=== PATIENT | male | born 1970 | race Caucasian/White ===

== ENCOUNTER 2018-07-18 15:57 | Inpatient (IN) | payer OTHER ==
[2018-07-18 17:49] VITALS: BMI 27.7
--- NOTE | 2018-07-18 18:17 | HP ---
CIWA Score Nausea/Vomitin-Mild Nausea/No Vomiting Muscle Tremors: 2 Anxiety: 4-Mod. Anxious/Guarded Agitation: 4-Moderately Restless Paroxysmal Sweats: No Perspiration Orientation: 1-Uncertain about Date Tacttile Disturbances: 2-Mild Itch/Numbness/Burn Auditory Disturbances: 0-None Visual Disturbances: 0-None Headache: 2-Mild CIWA-Ar Total Score: 16 - Admission Criteria OASAS Guidelines: Admission for Medically Managed Detox: Requires at least one of the followin. CIWA greater than 12 2. Seizures within the past 24 hours 3. Delirium tremens within the past 24 hours 4. Hallucinations within the past 24 hours 5. Acute intervention needed for co occurring medical disorder 6. Acute intervention needed for co occurring psychiatric disorder 7. Severe withdrawal that cannot be handled at a lower level of care (continued vomiting, continued diarrhea, abnormal vital signs) requiring intravenous medication and/or fluids 8. Patient presents the following: CIWA greater than 12 Admission Criteria Met: Admission criteria met Admission ROS [facility] Allergies/Adverse Reactions: Allergies Allergy/AdvReac Type Severity Reaction Status Date / Time No Known Allergies Allergy Verified 12/29/17 17:00 History of Present Illness: patient here for detox from etoh use , reports 06/29 liquor , first age of use 14 , progressively increased since his 20's , prior detox at this facility several years ago ,latest use yesterday, current symptoms as above. Reports relapsed several days ago , prior no etoh use since 1 yr ago , relapsed Jun 2017, then August 2017 , then September 2017 - Jun 2018 sober .Denies seizures, + blackouts + tremors if not drinking , + falls while intoxicated , most recently 2 mo ago states he went to [facility] . States went to [facility] 3 d. ago for chest pain , medically cleared, per pt Ef 20 % . tobacco : occasional cocaine : 400-500 $/day , denies ivdu denies other illicits PMHX :heart dz, heart failure , asthma, DM , bipolar d/o , depression , anxiety , neuropathy x 1 yr using cane PSHx : lipoma from abdomen and legs 2011 , cardiac stenting 2012, 2014,2016 SHx: homeless , unemployed , finances habit through [facility] and SSD since 2017 for MH issues Patient reports planning to return to [place] upon completion of detox . 07/25/18 . Has daughter in [place] age 5 . MEDS COULD NOT BE VERIFIED PHARMACY WAS CLOSED : [phone] , insulin coverage provided for overnight . discussed with patient . Exam Limitations: Clinical Condition - Ebola screening Have you traveled outside of the country in the last 21 days: No Have you had contact with anyone from an Ebola affected area: No Have you been sick,other than usual withdrawal symptoms: No Do you have a fever: No - Review of Systems Constitutional: See HPI EENT: reports: Other (glasses - bifocals , denies dysphagia) Respiratory: reports: No Symptoms reported, Shortness of Breath (has albuterol inhaler) Cardiac: reports: Other (known cardiac issues, has NTG , intermittent CP) GI: reports: No Symptoms Reported : reports: No Symptoms Reported Musculoskeletal: reports: See HPI Integumentary: reports: No Symptoms Reported Neuro: reports: No Symptoms reported Endocrine: reports: No Symptoms Reported Psychiatric: reports: Orientated x3, Anxious, Depressed Patient History - Patient Medical History Hx Anemia: No Hx Asthma: Yes (albuterol inhaler) Hx Chronic Obstructive Pulmonary Disease (COPD): No Hx Cancer: No Hx Cardiac Disorders: No (old mi s/p angioplasty with stent) Hx Congestive Heart Failure: Yes Hx Hypertension: Yes Hx Hypercholesterolemia: Yes Hx Pacemaker: No HX Cerebrovascular Accident: No Hx Seizures: No Hx Dementia: No Hx Diabetes: Yes (on metformin and insuin) Hx Gastrointestinal Disorders: No Hx Liver Disease: No Hx Genitourinary Disorders: No Hx Sexually Transmitted Disorders: No Hx Renal Disease (ESRD): No Hx Thyroid Disease: No Hx Human Immunodeficiency Virus (HIV): No (negative last 07/12) Hx Hepatitis C: No Hx Depression: Yes (anxiety,insomnia) Hx Suicide Attempt: Yes (overdose at age of 21 years) Hx Bipolar Disorder: No Hx Schizophrenia: No - Patient Surgical History Past Surgical History: Yes Hx Neurologic Surgery: No Hx Cataract Extraction: No Hx Cardiac Surgery: Yes (angioplasty with 3 stents in 2012) Hx Lung Surgery: No Hx Breast Surgery: No Hx Breast Biopsy: No Hx Abdominal Surgery: No Hx Appendectomy: No Hx Cholecystectomy: No Hx Genitourinary Surgery: No Hx Section: No Hx Orthopedic Surgery: No Anesthesia Reaction: No - PPD History Date: 12/31/17 - Smoking Cessation Smoking history: Current every day smoker Have you smoked in the past 12 months: Yes Aproximately how many cigarettes per day: 3 Hx Chewing Tobacco Use: No Initiated information on smoking cessation: No Family Disease History - Family Disease History Family Disease History: Other: Grandparent (grandmother alcohol), Mother ( alcohol,) Admission Physical Exam BHS - Vital Signs Vital Signs: Vital Signs - 24 hr 07/18/18 17:47 Temperature 98.1 F Pulse Rate 81 Respiratory 18 Rate Blood Pressure 116/82 - Physical General Appearance: Yes: Disheveled, Moderate Distress, Anxious HEENTM: Yes: Hearing grossly Normal, Normocephalic, Normal Voice Respiratory: Yes: Chest Non-Tender, Lungs Clear, Normal Breath Sounds Neck: Yes: No masses,lesions,Nodules, Trachea in good position Breast: Yes: Breast Exam Deferred Cardiology: Yes: Regular Rhythm, Regular Rate, S1, S2 Abdominal: Yes: Normal Bowel Sounds, Soft Genitourinary: Yes: Within Normal Limits Back: Yes: Normal Inspection Musculoskeletal: Yes: Other (ambulating w/ cane) Extremities: Yes: Normal Range of Motion, Non-Tender, Tremors Neurological: Yes: Normal Mood/Affect Integumentary: Yes: Normal Color, Warm - Diagnostic (1) Alcohol dependence with uncomplicated withdrawal Current Visit: No Status: Acute (2) Cocaine dependence Current Visit: No Status: Chronic Qualifiers: Substance use status: uncomplicated Qualified Code(s): F14.20 - Cocaine dependence, uncomplicated (3) Nicotine dependence Current Visit: No Status: Chronic Qualifiers: Nicotine product type: cigarettes Substance use status: in withdrawal Qualified Code(s): F17.213 - Nicotine dependence, cigarettes, with withdrawal (4) Old [place] (myocardial infarction) Current Visit: No Status: Chronic (5) Status post angioplasty with stent Current Visit: No Status: Acute (6) Asthma Current Visit: No Status: Chronic Qualifiers: Asthma severity: mild Asthma persistence: intermittent Asthma complication type: with status asthmaticus Qualified Code(s): J45.22 - Mild intermittent asthma with status asthmaticus (7) DM2 (diabetes mellitus, type 2) Current Visit: No Status: Chronic Qualifiers: Diabetes mellitus group home insulin use: with group home use Diabetes mellitus complication status: with diabetic arthropathy (8) Use of cane as ambulatory aid Current Visit: No Status: Chronic BHS Breath Alcohol Content Breath Alcohol Content: 0 Urine Drug Screen - Results Drug Screen Negative: No Urine Drug Screen Results: CALLI-Cocaine
[2018-07-18] MEDS ORDERED: IBUPROFEN 400 MG TABLET (FP) PO PRN (18:32)
[2018-07-18] MEDS ORDERED: MAGNESIUM CITRATE 300 ML BOTTLE PO PRN (18:32)
[2018-07-18] MEDS ORDERED: MAGNESIUM HYDROX 2400MG/30ML ORAL SUSPENSION 30 ML CUP PO PRN (18:32)
[2018-07-18] MEDS ORDERED: MENTHOL/PHENOL 1 EACH UD MM PRN (18:32)
[2018-07-18] MEDS ORDERED: P-EPHED 60MG/TRIPROLIDI 2.5MG TABLET PO PRN (18:32)
[2018-07-18] MEDS ORDERED: guaiFENesin/D-METHORPHAN HB 10 ML UNIT-DOSE CUPS PO PRN (18:32)
[2018-07-18] MEDS ORDERED: chlordiazePOXIDE HCL 25 MG CAPSULE PO PRN (18:32)
[2018-07-18] MEDS ORDERED: MAG HYDROX/AL HYDROX/SIMETH 30 ML UNIT-DOSE CUP PO PRN (18:32)
[2018-07-18] MEDS ORDERED: ALBUTEROL SO4 0.083% IH SOL 2.5 MG/3 ML VIAL.NEB. NEB PRN (19:25)
[2018-07-18] MEDS: CLOPIDOGREL BISULFATE 75 MG TABLET (FP) PO SCH (21:26)
[2018-07-18] MEDS: ATORVASTATIN CA 40 MG TABLET (FP) PO SCH (21:26)
[2018-07-18] MEDS: ASPIRIN 81 MG CHEWABLE TABLETS PO SCH (21:26)
[2018-07-18] MEDS: ALBUTEROL SO4 8 GM HFA INHALER IH SCH (21:36)
[2018-07-18] MEDS: THIAMINE HCL 100 MG TABLET (FP) PO SCH (22:18)
[2018-07-18] MEDS: ACETAMINOPHEN 325 MG TABLET (FP) PO PRN (22:19)
[2018-07-18] MEDS: MELATONIN 5 MG TABLETS PO PRN (22:19)
[2018-07-18] MEDS: INSULIN SLIDING SCALE (NOVOLOG) 1 VIAL SQ SCH (22:20)
[2018-07-18] MEDS: BUDESONIDE/FORMETEROL FUMARATE 80/4.5 mcg INHALER IH SCH (22:22)
[2018-07-18] MEDS: chlordiazePOXIDE HCL 25 MG CAPSULE PO SCH (22:35)
[2018-07-19] MEDS: ALBUTEROL SO4 8 GM HFA INHALER IH SCH ×4 (01:35→19:35)
[2018-07-19] MEDS: chlordiazePOXIDE HCL 25 MG CAPSULE PO SCH ×4 (05:19→22:38)
[2018-07-19] MEDS ORDERED: INSULIN SLIDING SCALE (NOVOLOG) 1 VIAL SQ ONE (08:03)
[2018-07-19] MEDS: metFORMIN HCL 500 MG TABLET (FP) PO SCH (08:06)
[2018-07-19] MEDS: INSULIN SLIDING SCALE (NOVOLOG) 1 VIAL SQ SCH ×4 (08:08→22:25)
[2018-07-19] MEDS: ASPIRIN 81 MG CHEWABLE TABLETS PO SCH (10:24)
[2018-07-19] MEDS: PRENATAL VITAMINS W/ FOLIC ACID TABLET (FP) PO SCH (10:24)
[2018-07-19] MEDS: CLOPIDOGREL BISULFATE 75 MG TABLET (FP) PO SCH (10:24)
[2018-07-19] MEDS: BUDESONIDE/FORMETEROL FUMARATE 80/4.5 mcg INHALER IH SCH ×2 (10:25→22:25)
[2018-07-19] MEDS: ACETAMINOPHEN 325 MG TABLET (FP) PO PRN ×2 (10:26→20:06)
[2018-07-19 10:44] LABS: ALBUMIN 3.3 g/dl (3.4-5.0); ALK PHOS 115 U/L (45-117); ANION GAP 11 MMOL/L (8-16); BILIRUBIN,TOTAL 0.5 mg/dL (0.2-1); BLOOD UREA NITROGEN 15 mg/dL (7-18); CALCIUM 8.3 mg/dL (8.5-10.1); CHLORIDE 101 mmol/L (98-107); CO2 24 mmol/L (21-32); CREATININE 1.1 mg/dL (0.55-1.3); POTASSIUM 3.8 mmol/L (3.5-5.1); SGOT/AST 18 U/L (15-37); SGPT/ALT 41 U/L (13-61); SODIUM 136 mmol/L (136-145); TOT PROT 6.3 g/dl (6.4-8.2)
[2018-07-19 10:45] LABS: HEMATOCRIT 38.7 % (35.4-49); HEMOGLOBIN 13.2 GM/dL (11.7-16.9); MCH 31.6 pg (25.7-33.7); MEAN PLT VOLUME 11.5 fl (7.5-11.1); PLATELET COUNT 120 K/MM3 (134-434); RBC 4.17 M/mm3 (4.00-5.60); RDW 13.6 % (11.9-15.9)
[2018-07-19 12:31] LABS: GLUCOSE,RANDOM 436 mg/dL (74-106)
[2018-07-19] MEDS: GABAPENTIN 400 MG CAPSULE (FP) PO SCH ×2 (13:47→22:21)
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
[2018-07-19] MEDS ORDERED: NITROGLYCERIN SUBLINGUAL 1/200 0.3 MG BTL SL PRN (15:17)
[2018-07-19] MEDS ORDERED: NITROGLYCERIN SUBLINGUAL 1/150 0.4 MG TAB SL PRN (15:37)
[2018-07-19] MEDS: ARIPiprazole 5 MG TABLET (FP) PO SCH (15:39)
[2018-07-19] MEDS: SERTRALINE HCL 50 MG TABLET (FP) PO SCH (15:39)
--- NOTE | 2018-07-19 15:47 | PN ---
S CIWA - CIWA Score Nausea/Vomitin Muscle Tremors: 3 Anxiety: 1-Mildly Anxious Agitation: 0-Normal Activity Paroxysmal Sweats: 3 Orientation: 2-Disoriented Date<2 days Tacttile Disturbances: 1-Very Mild Itch/Numbness Auditory Disturbances: 0-None Visual Disturbances: 1-Very Mild Sensitivity Headache: 3-Moderate CIWA-Ar Total Score: 17 BHS Progress Note (SOAP) Subjective: Tremors, Nausea, Sweating, Interrupted Sleep, H/A, Body Aches. Objective: PATIENT A & O X 2 (UNCERTAIN ABOUT CURRENT DAY / DATE). PATIENT OBSERVED AMBULATING ON UNIT WITH ASSISTANCE OF A CANE. IN NO ACUTE DISTRESS. 07/19/18 15:40 Vital Signs Temperature 97.5 F L 07/19/18 13:49 Pulse Rate 87 07/19/18 13:49 Respiratory Rate 17 07/19/18 13:49 Blood Pressure 128/81 07/19/18 13:49 O2 Sat by Pulse Oximetry (%) Laboratory Tests 07/18/18 07/18/18 07/19/18 20:37 21:24 05:18 WBC RBC Hgb Hct MCV MCH MCHC RDW Plt Count MPV Sodium Potassium Chloride Carbon Dioxide Anion Gap BUN Creatinine Creat Clearance w eGFR POC Glucometer 247 277 339 Random Glucose Calcium Total Bilirubin AST ALT Alkaline Phosphatase Total Protein Albumin 07/19/18 07/19/18 07/19/18 07:00 07:00 11:39 WBC 6.0 RBC 4.17 Hgb 13.2 Hct 38.7 MCV 93.0 MCH 31.6 MCHC 34.0 RDW 13.6 Plt Count 120 L MPV 11.5 H D Sodium 136 Potassium 3.8 Chloride 101 Carbon Dioxide 24 Anion Gap 11 BUN 15 Creatinine 1.1 Creat Clearance w eGFR > 60 POC Glucometer 388 Random Glucose 436 H* Calcium 8.3 L Total Bilirubin 0.5 AST 18 ALT 41 Alkaline Phosphatase 115 Total Protein 6.3 L Albumin 3.3 L LABS NOTED. RPR RESULT PENDING. 07/19/18 15:41 Assessment: 07/19/18 15:41 WITHDRAWAL SYMPTOMS. Plan: CONTINUE DETOX. INCREASE DAILY PO FLUID INTAKE. PATIENT REPORTS HISTORY OF TAKING NITROGLYCERIN PRN CHEST PAIN FOR CARDIAC DISEASE. HOWEVER, PATIENT UNCERTAIN ABOUT DOSE OF NITROGLYCERIN AND DID NOT BRING ANY OTHER MEDICATION WITH HIM AT TIME OF ADMISSION. PATIENT REPORTS THAT HIS PHARMACY IS [facility] ([place], [place]). HOWEVER, PHARMACIST AT [facility] REPORTS NO PAST RECORD OF MEDICATION PRESCRIPTION FOR PATIENT AT THAT PHARMACY
[2018-07-19] MEDS ORDERED: INSULIN (NOVOLOG) ASPART 100 UNITS/ML 10ML VIAL SQ SCH (22:00)
[2018-07-19] MEDS: THIAMINE HCL 100 MG TABLET (FP) PO SCH (22:22)
[2018-07-19] MEDS: ATORVASTATIN CA 40 MG TABLET (FP) PO SCH (22:26)
[2018-07-19] MEDS: INSULIN (LEVEMIR) 100 UNITS/ML UNITS SQ SCH (23:42)
[2018-07-19] MEDS: MELATONIN 5 MG TABLETS PO PRN (23:54)
[2018-07-20] MEDS: GABAPENTIN 400 MG CAPSULE (FP) PO SCH ×3 (06:08→22:07)
[2018-07-20] MEDS: chlordiazePOXIDE HCL 25 MG CAPSULE PO SCH ×3 (06:10→18:05)
[2018-07-20] MEDS ORDERED: INSULIN SLIDING SCALE (NOVOLOG) 1 VIAL SQ ONE (07:36)
[2018-07-20] MEDS: ALBUTEROL SO4 8 GM HFA INHALER IH SCH ×3 (08:02→18:15)
[2018-07-20] MEDS: metFORMIN HCL 500 MG TABLET (FP) PO SCH (08:02)
[2018-07-20] MEDS: INSULIN SLIDING SCALE (NOVOLOG) 1 VIAL SQ SCH ×4 (08:02→22:12)
[2018-07-20] MEDS: PRENATAL VITAMINS W/ FOLIC ACID TABLET (FP) PO SCH (10:59)
[2018-07-20] MEDS: ASPIRIN 81 MG CHEWABLE TABLETS PO SCH (10:59)
[2018-07-20] MEDS: SERTRALINE HCL 50 MG TABLET (FP) PO SCH (10:59)
[2018-07-20] MEDS: CLOPIDOGREL BISULFATE 75 MG TABLET (FP) PO SCH (10:59)
[2018-07-20] MEDS: BUDESONIDE/FORMETEROL FUMARATE 80/4.5 mcg INHALER IH SCH ×2 (11:00→22:07)
[2018-07-20] MEDS: ARIPiprazole 5 MG TABLET (FP) PO SCH (11:02)
--- NOTE | 2018-07-20 14:48 | PN ---
S CIWA - CIWA Score Nausea/Vomitin Muscle Tremors: 3 Anxiety: 4-Mod. Anxious/Guarded Agitation: 0-Normal Activity Paroxysmal Sweats: 3 Orientation: 0-Oriented Tacttile Disturbances: 3-Moderate Itch/Numb/Burn Auditory Disturbances: 0-None Visual Disturbances: 0-None Headache: 0-None Present CIWA-Ar Total Score: 16 BHS Progress Note (SOAP) Subjective: Interrupted Sleep, Sweating, Body Aches, Nausea, Tremors, Anxious. Objective: PATIENT A & O X 3. IN NO ACUTE DISTRESS. PATIENT REPORTS SIGNIFICANT FEELINGS OF SADNESS AND THAT HE "SOMETIMES HEAR VOICES." PATIENT DENIES CAH FROM VOICES AND DENIES THAT HE IS CURRENTLY HEARING THE VOICES. PATIENT DENIES SI / HI. 07/20/18 14:47 Vital Signs Temperature 96.7 F L 07/20/18 13:19 Pulse Rate 71 07/20/18 13:19 Respiratory Rate 16 07/20/18 13:19 Blood Pressure 115/70 07/20/18 13:19 O2 Sat by Pulse Oximetry (%) Laboratory Tests 07/18/18 07/18/18 07/19/18 20:37 21:24 05:18 WBC RBC Hgb Hct MCV MCH MCHC RDW Plt Count MPV Sodium Potassium Chloride Carbon Dioxide Anion Gap BUN Creatinine Creat Clearance w eGFR POC Glucometer 247 277 339 Random Glucose Calcium Total Bilirubin AST ALT Alkaline Phosphatase Total Protein Albumin RPR Titer 07/19/18 07/19/18 07/19/18 07:00 07:00 07:00 WBC 6.0 RBC 4.17 Hgb 13.2 Hct 38.7 MCV 93.0 MCH 31.6 MCHC 34.0 RDW 13.6 Plt Count 120 L MPV 11.5 H D Sodium 136 Potassium 3.8 Chloride 101 Carbon Dioxide 24 Anion Gap 11 BUN 15 Creatinine 1.1 Creat Clearance w eGFR > 60 POC Glucometer Random Glucose 436 H* Calcium 8.3 L Total Bilirubin 0.5 AST 18 ALT 41 Alkaline Phosphatase 115 Total Protein 6.3 L Albumin 3.3 L RPR Titer Nonreactive 07/19/18 07/19/18 07/19/18 11:39 16:37 22:20 WBC RBC Hgb Hct MCV MCH MCHC RDW Plt Count MPV Sodium Potassium Chloride Carbon Dioxide Anion Gap BUN Creatinine Creat Clearance w eGFR POC Glucometer 388 323 432 Random Glucose Calcium Total Bilirubin AST ALT Alkaline Phosphatase Total Protein Albumin RPR Titer 07/20/18 07/20/18 06:07 11:33 WBC RBC Hgb Hct MCV MCH MCHC RDW Plt Count MPV Sodium Potassium Chloride Carbon Dioxide Anion Gap BUN Creatinine Creat Clearance w eGFR POC Glucometer 252 349 Random Glucose Calcium Total Bilirubin AST ALT Alkaline Phosphatase Total Protein Albumin RPR Titer LABS NOTED. 07/20/18 14:49 Assessment: 07/20/18 14:48 WITHDRAWAL SYMPTOMS. THROMBOCYTOPENIA. Plan: CONTINUE DETOX. PSYCH EVALUATION REQUESTED FOR PATIENT.
[2018-07-20] MEDS: ACETAMINOPHEN 325 MG TABLET (FP) PO PRN (15:24)
[2018-07-20] MEDS: THIAMINE HCL 100 MG TABLET (FP) PO SCH (22:07)
[2018-07-20] MEDS: ATORVASTATIN CA 40 MG TABLET (FP) PO SCH (22:07)
[2018-07-20] MEDS: chlordiazePOXIDE 5 MG CAPSULE PO SCH (22:07)
[2018-07-20] MEDS: MELATONIN 5 MG TABLETS PO PRN (22:08)
[2018-07-20] MEDS: INSULIN (LEVEMIR) 100 UNITS/ML UNITS SQ SCH (22:12)
[2018-07-21] MEDS ORDERED: INSULIN SLIDING SCALE (NOVOLOG) 1 VIAL SQ ONE (07:39)
[2018-07-21] MEDS: INSULIN SLIDING SCALE (NOVOLOG) 1 VIAL SQ SCH ×4 (07:42→22:23)
[2018-07-21] MEDS: metFORMIN HCL 500 MG TABLET (FP) PO SCH (07:42)
[2018-07-21] MEDS: GABAPENTIN 400 MG CAPSULE (FP) PO SCH ×3 (07:42→22:22)
[2018-07-21] MEDS: ALBUTEROL SO4 8 GM HFA INHALER IH SCH ×4 (07:42→19:10)
[2018-07-21] MEDS: chlordiazePOXIDE 5 MG CAPSULE PO SCH ×3 (07:42→17:19)
[2018-07-21] MEDS: PRENATAL VITAMINS W/ FOLIC ACID TABLET (FP) PO SCH (10:22)
[2018-07-21] MEDS: SERTRALINE HCL 50 MG TABLET (FP) PO SCH (10:22)
[2018-07-21] MEDS: BUDESONIDE/FORMETEROL FUMARATE 80/4.5 mcg INHALER IH SCH ×2 (10:22→22:26)
[2018-07-21] MEDS: CLOPIDOGREL BISULFATE 75 MG TABLET (FP) PO SCH (10:22)
[2018-07-21] MEDS: ASPIRIN 81 MG CHEWABLE TABLETS PO SCH (10:22)
[2018-07-21] MEDS: ARIPiprazole 5 MG TABLET (FP) PO SCH (10:45)
--- NOTE | 2018-07-21 11:09 | PN ---
BHS Progress Note (SOAP) Subjective: feeling better less tremor mild sweating discuss diabetes management and aftercare Objective: 07/21/18 11:22 Vital Signs Temperature 97.2 F L 07/21/18 09:18 Pulse Rate 93 H 07/21/18 09:18 Respiratory Rate 20 07/21/18 09:18 Blood Pressure 110/77 07/21/18 09:18 O2 Sat by Pulse Oximetry (%) Laboratory Last Values WBC 6.0 K/mm3 (4.0-10.0) 07/19/18 07:00 RBC 4.17 M/mm3 (4.00-5.60) 07/19/18 07:00 Hgb 13.2 GM/dL (11.7-16.9) 07/19/18 07:00 Hct 38.7 % (35.4-49) 07/19/18 07:00 MCV 93.0 fl (80-96) 07/19/18 07:00 MCH 31.6 pg (25.7-33.7) 07/19/18 07:00 MCHC 34.0 g/dl (32.0-35.9) 07/19/18 07:00 RDW 13.6 % (11.9-15.9) 07/19/18 07:00 Plt Count 120 K/MM3 (134-434) L 07/19/18 07:00 MPV 11.5 fl (7.5-11.1) H D 07/19/18 07:00 Sodium 136 mmol/L (136-145) 07/19/18 07:00 Potassium 3.8 mmol/L (3.5-5.1) 07/19/18 07:00 Chloride 101 mmol/L (98-107) 07/19/18 07:00 Carbon Dioxide 24 mmol/L (21-32) 07/19/18 07:00 Anion Gap 11 MMOL/L (8-16) 07/19/18 07:00 BUN 15 mg/dL (7-18) 07/19/18 07:00 Creatinine 1.1 mg/dL (0.55-1.3) 07/19/18 07:00 Creat Clearance w eGFR > 60 (>60) 07/19/18 07:00 POC Glucometer 303 UNITS (80-120) 07/21/18 07:35 Random Glucose 436 mg/dL (74-106) H* 07/19/18 07:00 Calcium 8.3 mg/dL (8.5-10.1) L 07/19/18 07:00 Total Bilirubin 0.5 mg/dL (0.2-1) 07/19/18 07:00 AST 18 U/L (15-37) 07/19/18 07:00 ALT 41 U/L (13-61) 07/19/18 07:00 Alkaline Phosphatase 115 U/L (45-117) 07/19/18 07:00 Total Protein 6.3 g/dl (6.4-8.2) L 07/19/18 07:00 Albumin 3.3 g/dl (3.4-5.0) L 07/19/18 07:00 RPR Titer Nonreactive (NONREACTIVE) 07/19/18 07:00 lab noted Assessment: 07/21/18 11:23 mild withdrawal sx Plan: continue detox
[2018-07-21] MEDS: ACETAMINOPHEN 325 MG TABLET (FP) PO PRN (19:11)
[2018-07-21] MEDS: ATORVASTATIN CA 40 MG TABLET (FP) PO SCH (22:22)
[2018-07-21] MEDS: INSULIN (LEVEMIR) 100 UNITS/ML UNITS SQ SCH (22:22)
[2018-07-21] MEDS: THIAMINE HCL 100 MG TABLET (FP) PO SCH (22:22)
[2018-07-21] MEDS: chlordiazePOXIDE HCL 10 MG CAPSULE PO SCH (22:22)
[2018-07-21] MEDS: MELATONIN 5 MG TABLETS PO PRN (22:24)
[2018-07-22] MEDS: ALBUTEROL SO4 8 GM HFA INHALER IH SCH ×3 (04:05→12:46)
[2018-07-22] MEDS: GABAPENTIN 400 MG CAPSULE (FP) PO SCH (05:59)
[2018-07-22] MEDS: chlordiazePOXIDE HCL 10 MG CAPSULE PO SCH ×2 (05:59→10:16)
[2018-07-22] MEDS: metFORMIN HCL 500 MG TABLET (FP) PO SCH (06:57)
[2018-07-22] MEDS ORDERED: INSULIN SLIDING SCALE (NOVOLOG) 1 VIAL SQ ONE (07:48)
[2018-07-22] MEDS: INSULIN SLIDING SCALE (NOVOLOG) 1 VIAL SQ SCH ×2 (07:50→11:49)
[2018-07-22 09:26] VITALS: BP 102/65; PULSE 69; TEMP 97.6
[2018-07-22] MEDS: BUDESONIDE/FORMETEROL FUMARATE 80/4.5 mcg INHALER IH SCH (10:16)
[2018-07-22] MEDS: PRENATAL VITAMINS W/ FOLIC ACID TABLET (FP) PO SCH (10:17)
[2018-07-22] MEDS: ASPIRIN 81 MG CHEWABLE TABLETS PO SCH (10:17)
[2018-07-22] MEDS: CLOPIDOGREL BISULFATE 75 MG TABLET (FP) PO SCH (10:17)
[2018-07-22] MEDS: SERTRALINE HCL 50 MG TABLET (FP) PO SCH (10:17)
[2018-07-22] MEDS: ARIPiprazole 5 MG TABLET (FP) PO SCH (10:17)
--- NOTE | 2018-07-22 10:19 | DS ---
[facility] Detox Discharge Summary Admission Date: 07/18/18 Discharge Date: 07/22/18 - History Present History: Alcohol Dependence Additional Comments: 47 years old male admitted on 07/18/18 for alcohol withdrawal stabilization completed alcohol detox regimen [facility] - Physical Exam Results Vital Signs: Vital Signs Temperature 97.6 F 07/22/18 09:25 Pulse Rate 69 07/22/18 09:25 Respiratory Rate 18 07/22/18 09:25 Blood Pressure 102/65 07/22/18 09:25 O2 Sat by Pulse Oximetry (%) Pertinent Admission Physical Exam Findings: alcohol withdrawal sx Vital Signs Temperature 97.6 F 07/22/18 09:25 Pulse Rate 69 07/22/18 09:25 Respiratory Rate 18 07/22/18 09:25 Blood Pressure 102/65 07/22/18 09:25 O2 Sat by Pulse Oximetry (%) Laboratory Last Values WBC 6.0 K/mm3 (4.0-10.0) 07/19/18 07:00 RBC 4.17 M/mm3 (4.00-5.60) 07/19/18 07:00 Hgb 13.2 GM/dL (11.7-16.9) 07/19/18 07:00 Hct 38.7 % (35.4-49) 07/19/18 07:00 MCV 93.0 fl (80-96) 07/19/18 07:00 MCH 31.6 pg (25.7-33.7) 07/19/18 07:00 MCHC 34.0 g/dl (32.0-35.9) 07/19/18 07:00 RDW 13.6 % (11.9-15.9) 07/19/18 07:00 Plt Count 120 K/MM3 (134-434) L 07/19/18 07:00 MPV 11.5 fl (7.5-11.1) H D 07/19/18 07:00 Sodium 136 mmol/L (136-145) 07/19/18 07:00 Potassium 3.8 mmol/L (3.5-5.1) 07/19/18 07:00 Chloride 101 mmol/L (98-107) 07/19/18 07:00 Carbon Dioxide 24 mmol/L (21-32) 07/19/18 07:00 Anion Gap 11 MMOL/L (8-16) 07/19/18 07:00 BUN 15 mg/dL (7-18) 07/19/18 07:00 Creatinine 1.1 mg/dL (0.55-1.3) 07/19/18 07:00 Creat Clearance w eGFR > 60 (>60) 07/19/18 07:00 POC Glucometer 217 UNITS (80-120) 07/22/18 05:59 Random Glucose 436 mg/dL (74-106) H* 07/19/18 07:00 Calcium 8.3 mg/dL (8.5-10.1) L 07/19/18 07:00 Total Bilirubin 0.5 mg/dL (0.2-1) 07/19/18 07:00 AST 18 U/L (15-37) 07/19/18 07:00 ALT 41 U/L (13-61) 07/19/18 07:00 Alkaline Phosphatase 115 U/L (45-117) 07/19/18 07:00 Total Protein 6.3 g/dl (6.4-8.2) L 07/19/18 07:00 Albumin 3.3 g/dl (3.4-5.0) L 07/19/18 07:00 RPR Titer Nonreactive (NONREACTIVE) 07/19/18 07:00 lab noted - Treatment Hospital Course: Detox Protocol Followed, Detoxed Safely, Responded well, Discharged Condition Good, Rehab Referral Accepted Patient has Accepted a [facility] Referral to: [facility] - Medication Discharge Medications: Ambulatory Orders Aspirin [ASA -] 81 mg PO DAILY 12/29/17 Insulin (Novolog) [Novolog -] 45 units SQ HS 12/29/17 Albuterol Sulfate Inhaler - [Ventolin HFA Inhaler -] 2 inh PO Q6H #1 inhaler 04/11 Budesonide/Formeterol Fumarate [SYMBICORT 80/4.5mcg -] 1 inh PO BID #1 inhaler 01/01/18 Clopidogrel Bisulfate [Plavix -] 75 mg PO DAILY #30 tablet 01/01/18 Insulin (Novolog) [Novolog -] 10 units SQ BID #1 units 01/01/18 Aripiprazole [Abilify -] 5 mg PO DAILY 07/18/18 Atorvastatin Ca [Lipitor] 40 mg PO HS 07/18/18 Gabapentin [Neurontin -] 400 mg PO TID 07/18/18 Metformin HCl [Glucophage] 1,000 mg PO DAILY 07/18/18 Lantus 20 units SQ HS 07/19/18 - Diagnosis (1) Asthma Current Visit: Yes Status: Chronic Qualifiers: Asthma severity: mild Asthma persistence: intermittent Asthma complication type: with status asthmaticus Qualified Code(s): J45.22 - Mild intermittent asthma with status asthmaticus (2) Alcohol dependence with uncomplicated withdrawal Current Visit: Yes Status: Acute (3) Hypertension Current Visit: Yes Status: Chronic Qualifiers: Hypertension type: essential hypertension Qualified Code(s): I10 - Essential (primary) hypertension (4) Nicotine dependence Current Visit: Yes Status: Acute Qualifiers: Nicotine product type: cigarettes Substance use status: in withdrawal Qualified Code(s): F17.213 - Nicotine dependence, cigarettes, with withdrawal (5) Use of cane as ambulatory aid Current Visit: Yes Status: Chronic - AMA Did Patient Leave Against Medical Advice: No
== END 2018-07-22 12:50 | disposition other institution (70) | DRG 774 ==
LOC: YASAS 15:57 → Y3N 20:53
PROVIDERS: ADMIT Neuromusculoskeletal Medicine & OMM; ATTEND Neuromusculoskeletal Medicine & OMM
PROC: HZ2ZZZZ Detoxification Services for Substance Abuse Treatment (ICD-10-PCS; principal; 2018-07-18)
DX: F10.230 Alcohol dependence with withdrawal, uncomplicated (principal); F14.20 Cocaine dependence, uncomplicated; F17.210 Nicotine dependence, cigarettes, uncomplicated; F31.81 Bipolar II disorder; I25.10 Atherosclerotic heart disease of native coronary artery without angina pectoris; I10 Essential (primary) hypertension; Z95.5 Presence of coronary angioplasty implant and graft; I25.2 Old myocardial infarction; J45.22 Mild intermittent asthma with status asthmaticus; E11.9 Type 2 diabetes mellitus without complications; Z79.4 Long term (current) use of insulin; R26.89 Other abnormalities of gait and mobility; Z99.89 Dependence on other enabling machines and devices
CPT/HCPCS: 36415; 80053; 82962; 85027; 86593

== ENCOUNTER 2018-07-22 13:05 | Inpatient (IN) | payer OTHER ==
--- NOTE | 2018-07-22 10:20 | HP ---
[facility] Rehab Assess/Revision - Admission History Admitted to Rehab from: [facility] Date of Admission to Rehab: 07/22/18 - Findings Detox History & Physical reviewed: Yes Concur with findings: Yes Comments/Additional Findings: trasnferred from detox to rehab admission as per protocol Inpatient Rehab Admission - Initial Determination Are CD services needed?: Yes Free of communicable disease: Yes Not in need of hospitalization: Yes - Rehab Admission Criteria Previous failed treatment: Yes Poor recovery environment: Yes Comorbidities: Yes Lacks judgement: No Patient is meeting Inpatient Rehab admission criteria:: Yes
[~2018-07-22 13:05] MED LIST: ACETAMINOPHEN 325 MG TABLET (FP) PO PRN; ALBUTEROL SO4 8 GM HFA INHALER IH PRN; IBUPROFEN 400 MG TABLET (FP) PO PRN; LOPERAMIDE HCL 2 MG CAPSULE PO PRN; MAG HYDROX/AL HYDROX/SIMETH 30 ML UNIT-DOSE CUP PO PRN; MAGNESIUM CITRATE 300 ML BOTTLE PO PRN; MAGNESIUM HYDROX 2400MG/30ML ORAL SUSPENSION 30 ML CUP PO PRN; MENTHOL/PHENOL 1 EACH UD MM PRN; NICOTINE POLACRILEX 2 MG GUM BUC PRN; P-EPHED 60MG/TRIPROLIDI 2.5MG TABLET PO PRN; guaiFENesin/D-METHORPHAN HB 10 ML UNIT-DOSE CUPS PO PRN
[2018-07-22] MEDS: INSULIN SLIDING SCALE (NOVOLOG) 1 VIAL SQ SCH ×3 (15:43→21:47)
--- NOTE | 2018-07-22 16:46 | CONSULT ---
[facility] Psychiatric Consult - Data Date of interview: 07/22/18 Admission source: [address] [place] [address] detox Identifying data: This is the first admission to [address] [place] [address] inpatient rehabilitation for this 47 years old childless,unemployed,undomiciled H male. Substance Abuse History: Reports drinking since 14 years old,1/2 gallon of vodka ,cocaine since 15 yo,spending about $20 daily. Medical History: HTN,BA,IDDM,Hyperlipidemia,H/O CA with angioplasty. Psychiatric History: Patient has long psychiatric history .He was dx with Bipolar disorder and reports 2 psychiatric hospitalizations.No history of suicidal attempts.patient reports poor compliance with psychiatric OPD care, obtains his psychotropic medications from local ER.Patient restarted Zoloft 100 mg po daily and abilify 5 mg po daily in detox last week and is willing to continue above medications. Mental Status Exam - Mental Status Exam Alert and Oriented to: Time, Place, Person Cognitive Function: Grossly Intact Patient Appearance: Well Groomed Mood: Sad, Anxious Affect: Labile Patient Behavior: Cooperative Speech Pattern: Clear Voice Loudness: Normal Thought Process: Goal Oriented Thought Disorder: Not Present Hallucinations: Denies Suicidal Ideation: Denies Homicidal Ideation: Denies Insight/Judgement: Fair Sleep: Fair Appetite: Good Muscle strength/Tone: Normal Gait/Station: Antalgic Psychiatric Findings - Problem List ([place] 1, 2,3) (1) Alcohol dependence Current Visit: Yes Status: Chronic (2) Asthma Current Visit: Yes Status: Chronic Qualifiers: (3) Bipolar II disorder Current Visit: Yes Status: Chronic (4) Cocaine dependence Current Visit: Yes Status: Chronic (5) Hypercholesteremia Current Visit: Yes Status: Chronic (6) Hypertension Current Visit: No Status: Chronic Qualifiers: Hypertension type: essential hypertension Qualified Code(s): I10 - Essential (primary) hypertension (7) Nicotine dependence Current Visit: Yes Status: Chronic Qualifiers: Nicotine product type: cigarettes Substance use status: in withdrawal Qualified Code(s): F17.213 - Nicotine dependence, cigarettes, with withdrawal (8) Old CA (myocardial infarction) Current Visit: Yes Status: Chronic (9) Status post angioplasty with stent Current Visit: Yes Status: Chronic (10) Use of cane as ambulatory aid Current Visit: Yes Status: Chronic - Initial Treatment Plan Initial Treatment Plan: Continue current medications as per plan.Will monitor progress.
[2018-07-22] MEDS ORDERED: INSULIN (NOVOLOG) ASPART 100 UNITS/ML 10ML VIAL ONE (16:47)
[2018-07-22] MEDS: THIAMINE HCL 100 MG TABLET (FP) PO SCH (21:41)
[2018-07-22] MEDS: BUDESONIDE/FORMETEROL FUMARATE 80/4.5 mcg INHALER IH SCH (21:43)
[2018-07-22] MEDS: INSULIN (LEVEMIR) 100 UNITS/ML UNITS SQ SCH (21:44)
[2018-07-22] MEDS: ATORVASTATIN CA 40 MG TABLET (FP) PO SCH (21:48)
[2018-07-22] MEDS: MELATONIN 5 MG TABLETS PO PRN (21:49)
[2018-07-22] MEDS ORDERED: BUDESONIDE/FORMETEROL FUMARATE 80/4.5 mcg INHALER IH SCH (22:00)
[2018-07-23] MEDS: metFORMIN HCL 500 MG TABLET (FP) PO SCH (06:46)
[2018-07-23] MEDS ORDERED: INSULIN (NOVOLOG) ASPART 100 UNITS/ML 10ML VIAL ONE ×2 (06:48→12:10)
[2018-07-23] MEDS: INSULIN SLIDING SCALE (NOVOLOG) 1 VIAL SQ SCH ×4 (06:49→21:31)
[2018-07-23] MEDS: SERTRALINE HCL 50 MG TABLET (FP) PO SCH (11:08)
[2018-07-23] MEDS: ARIPiprazole 5 MG TABLET (FP) PO SCH (11:08)
[2018-07-23] MEDS: CLOPIDOGREL BISULFATE 75 MG TABLET (FP) PO SCH (11:08)
[2018-07-23] MEDS: ASPIRIN 81 MG CHEWABLE TABLETS PO SCH (11:08)
[2018-07-23] MEDS: PRENATAL VITAMINS W/ FOLIC ACID TABLET (FP) PO SCH (11:09)
[2018-07-23] MEDS: NICOTINE 14 MG/24 HOURS TOPICAL PATCH TD SCH (11:10)
[2018-07-23] MEDS: BUDESONIDE/FORMETEROL FUMARATE 80/4.5 mcg INHALER IH SCH ×2 (11:10→21:32)
[2018-07-23] MEDS: GABAPENTIN 400 MG CAPSULE (FP) PO SCH ×2 (13:03→21:26)
[2018-07-23] MEDS: ATORVASTATIN CA 40 MG TABLET (FP) PO SCH (21:26)
[2018-07-23] MEDS: THIAMINE HCL 100 MG TABLET (FP) PO SCH (21:26)
[2018-07-23] MEDS: MELATONIN 5 MG TABLETS PO PRN (21:26)
[2018-07-23] MEDS: INSULIN (LEVEMIR) 100 UNITS/ML UNITS SQ SCH (21:30)
[2018-07-24] MEDS: GABAPENTIN 400 MG CAPSULE (FP) PO SCH ×3 (06:58→21:36)
[2018-07-24] MEDS: metFORMIN HCL 500 MG TABLET (FP) PO SCH (06:58)
[2018-07-24] MEDS: INSULIN SLIDING SCALE (NOVOLOG) 1 VIAL SQ SCH ×4 (06:59→21:40)
[2018-07-24] MEDS: CLOPIDOGREL BISULFATE 75 MG TABLET (FP) PO SCH (09:28)
[2018-07-24] MEDS: NICOTINE 14 MG/24 HOURS TOPICAL PATCH TD SCH (09:28)
[2018-07-24] MEDS: ASPIRIN 81 MG CHEWABLE TABLETS PO SCH (09:28)
--- NOTE | 2018-07-24 10:11 | PN ---
S Progress Note Note: PT C/O INTERMITTENT SHARP PAIN TO LEFT UPPER CHEST, NOT RADIATING TO ANY PART OF LIMB/BODY AND SPECIFICALLY STATES HE JUST WANT TO TAKE HIS MEDICATIONS AND NO NEED FOR EMERGENCY EVALUATION. DENIES SOB, NAUSEA, VOMITING, DIZZINESS, HEADACHE. HX OF DM,CHF,ASTHMA,AND PERIPHERAL NEUROPATHY. PT REPORTS HE TAKES NTG 0.4 MG BID PRN AT HOME. Vital Signs - 8 hr 07/24/18 07/24/18 03:30 07:06 Temperature 97.7 F Pulse Rate 76 Respiratory 18 18 Rate Blood Pressure 105/70 CARDIAC:S1 S2, RRR LUNGS:CTA, PULSE OX:97% REPEAT EKG:NSR ATEROSEPTALINFARCT,AGE UNDETERMINED ABNORMAL EKG THE SAME TEST FINDING IN PREVIOUS EKG OF 12/29/17 AND REMAINS UNCHANGED. BOTH COPIES IN PATIENT'S CHART. PLAN:ASPIRIN AND PLAVIX GIVEN DIRECTED. NTG 0.4 MG PO PRN, MAY REPEAT X 2 DOSES. TRANSFER TO [facility] FOR FURTHER EVALUATION IF NEEDED.
[2018-07-24] MEDS ORDERED: NITROGLYCERIN SUBLINGUAL 1/150 0.4 MG TAB SL PRN (10:21)
[2018-07-24] MEDS: BUDESONIDE/FORMETEROL FUMARATE 80/4.5 mcg INHALER IH SCH ×2 (10:49→21:41)
[2018-07-24] MEDS: RANITIDINE HCL 150 MG TABLET (FP) PO SCH ×2 (10:50→21:36)
[2018-07-24] MEDS: PRENATAL VITAMINS W/ FOLIC ACID TABLET (FP) PO SCH (10:50)
[2018-07-24] MEDS: SERTRALINE HCL 50 MG TABLET (FP) PO SCH (10:50)
[2018-07-24] MEDS: ARIPiprazole 5 MG TABLET (FP) PO SCH (10:50)
[2018-07-24] MEDS ORDERED: INSULIN (NOVOLOG) ASPART 100 UNITS/ML 10ML VIAL ONE ×2 (12:10→16:19)
--- NOTE | 2018-07-24 19:08 | EKG ---
Test Reason : Blood Pressure : / mmHG Vent. Rate : 078 BPM Atrial Rate : 078 BPM P-R Int : 158 ms QRS Dur : 086 ms QT Int : 372 ms P-R-T Axes : 061 -25 -07 degrees QTc Int : 424 ms NORMAL SINUS RHYTHM ANTEROSEPTAL INFARCT (CITED ON OR BEFORE 29-DEC-2017) ABNORMAL ECG WHEN COMPARED WITH ECG OF 29-DEC-2017 18:58, QUESTIONABLE CHANGE IN INITIAL FORCES OF ANTERIOR LEADS Confirmed by JUDSON MEDELLIN MD ([id number]) on 07/24/2018 7:07:52 PM Referred By: ESCOBAR KOCH Confirmed By:JUDSON MEDELLIN MD
[2018-07-24] MEDS: THIAMINE HCL 100 MG TABLET (FP) PO SCH (21:36)
[2018-07-24] MEDS: ATORVASTATIN CA 40 MG TABLET (FP) PO SCH (21:36)
[2018-07-24] MEDS: INSULIN (LEVEMIR) 100 UNITS/ML UNITS SQ SCH (21:40)
[2018-07-24] MEDS: MELATONIN 5 MG TABLETS PO PRN (21:43)
[2018-07-25] MEDS: GABAPENTIN 400 MG CAPSULE (FP) PO SCH (06:49)
[2018-07-25] MEDS: INSULIN SLIDING SCALE (NOVOLOG) 1 VIAL SQ SCH (06:49)
[2018-07-25] MEDS: metFORMIN HCL 500 MG TABLET (FP) PO SCH (06:49)
[2018-07-25 07:11] VITALS: BP 119/88; PULSE 75; TEMP 97.8
[2018-07-25] MEDS: SERTRALINE HCL 50 MG TABLET (FP) PO SCH (10:14)
[2018-07-25] MEDS: ARIPiprazole 5 MG TABLET (FP) PO SCH (10:14)
[2018-07-25] MEDS: ASPIRIN 81 MG CHEWABLE TABLETS PO SCH (10:14)
[2018-07-25] MEDS: CLOPIDOGREL BISULFATE 75 MG TABLET (FP) PO SCH (10:15)
[2018-07-25] MEDS: RANITIDINE HCL 150 MG TABLET (FP) PO SCH (10:15)
[2018-07-25] MEDS: NICOTINE 14 MG/24 HOURS TOPICAL PATCH TD SCH (10:15)
[2018-07-25] MEDS: PRENATAL VITAMINS W/ FOLIC ACID TABLET (FP) PO SCH (10:15)
[2018-07-25] MEDS: BUDESONIDE/FORMETEROL FUMARATE 80/4.5 mcg INHALER IH SCH (10:15)
--- NOTE | 2018-07-25 11:08 | PN ---
[facility] Progress Note Note: MEDICAL DISCHARGE NOTE PT STATES HE IS LEAVING TODAY TO " CATCH A GREYHOUND TO [place], [place] FROM HERE". PT REPORTS IT HAS BEEN HIS PLAN TO LEAVE TODAY, WHEN IASKED THE REASON FOR THE UNTIMELY DECISION TO LEAVE TREATMENT. PT REPORTS HE LIVES IN [place] BUT HAS FAMILY HERE AND CAME TO TAKE CARE OF HIS MOTHER BUT NOW WANTS TO GO BACK. PT REPORTS HE HAD NO PMD WHILE IN [place] BUT UTILIZED THE EDs FOR HIS MEDICAL NEEDS. HOWEVER, PT REPORTS HE HAS PROVIDERS IN [place], PCP DR. Hernandes"(WHO HE SAYS HE CANNOT SAY THE NAME RIGHT) AND A PSYCHIATRIST DR. DAMIAN(DOES NOT REMEMBER HER LAST NAME). PT REQUESTED 30 DAY SUPPLY OF HIS MEDICATIONS WHICH WERE ELECTRONICALLY SENT TO [facility] FOR MASSAGE THERAPIST AFTER DISCHARGE. PT HAS BEEN INSTRUCTED TO FOLLOW UP WITH HIS PRIMARY CARE DOCTORS IN [facility] ONCE HE ARRIVES AT THE LOCATION. PT WAS ALSO MADE AWARE OF THE DANGEROUSLY FREEZING TEMPERATURES OUTSIDE A RESULT OF THE CURRENT INCLEMENT WEATHER BUT SAYS HE IS USED TO SUCH WEATHER IN [place]. PT IS ALERT O X 3. DENIES ANY DISCOMFORT. Vital Signs - 24 hr 07/24/18 07/25/18 07/25/18 12:46 00:30 03:30 Temperature Pulse Rate 72 Respiratory 18 18 Rate Blood Pressure 108/60 07/25/18 07:06 Temperature 97.8 F Pulse Rate 75 Respiratory 18 Rate Blood Pressure 119/88 NAD MEDICALLY STABLE PLAN:FOLLOW UP WITH YOUR PCP IN [place] ONCE YOU ARRIVE FOR MEDICAL MANAGEMENT.
== END 2018-07-25 11:30 | disposition left against medical advice (07) | DRG 770 ==
LOC: YASAS 13:05 → Y5N 13:06
PROVIDERS: ADMIT Psychiatry & Neurology Psychiatry; ATTEND Psychiatry & Neurology Psychiatry
PROC: HZ42ZZZ Group Counseling for Substance Abuse Treatment, Cognitive-Behavioral (ICD-10-PCS; principal; 2018-07-22)
DX: F10.20 Alcohol dependence, uncomplicated (principal); F14.20 Cocaine dependence, uncomplicated; F17.213 Nicotine dependence, cigarettes, with withdrawal; F31.81 Bipolar II disorder; E78.5 Hyperlipidemia, unspecified; R94.31 Abnormal electrocardiogram [ECG] [EKG]; I10 Essential (primary) hypertension; I25.2 Old myocardial infarction; E11.9 Type 2 diabetes mellitus without complications; Z79.4 Long term (current) use of insulin; Z95.5 Presence of coronary angioplasty implant and graft; R26.2 Difficulty in walking, not elsewhere classified; Z99.89 Dependence on other enabling machines and devices
CPT/HCPCS: 36415; 82962; 87389; 93005; 93010